=== PATIENT | female | born 1955 | race Caucasian/White ===

== ENCOUNTER 2016-11-15 18:29 | Emergency (ER) | payer OTHER ==
[2016-11-15 18:58] VITALS: BP 112/76; PULSE 82; RESP 18; TEMP 98.2; O2SAT 94
[2016-11-15] MEDS ORDERED: CEPHALEXIN 500MG PREPACK#4 BTL TAKEHOME ONE (20:06)
--- NOTE | 2016-11-15 20:07 | UCPHY ---
H & P Time Seen by Provider: 11/15/16 19:35 Patient Type: New Smoking Status: Never smoked Constitutional: Initial Vital Signs Temperature (C) 36.8 C 11/15/16 18:54 Heart Rate 82 11/15/16 18:54 Respiratory Rate 18 11/15/16 18:54 Blood Pressure 112/76 11/15/16 18:54 O2 Sat (%) 94 11/15/16 18:54 O2 Delivery Mode Room Air Allergies/Adverse Reactions: No Known Allergies Allergy (Unverified 11/15/16 18:54) Home Medications: Medication Instructions Recorded Cephalexin [Keflex (*)] 500 mg PO TID #21 cap 11/15/16 Departure - Departure Clinical Impression: Puncture wound Cellulitis Qualifiers: Site of cellulitis: extremity Site of cellulitis of extremity: upper extremity Laterality: left Qualified Code(s): L03.114 - Cellulitis of left upper limb Sting, bee Qualifiers: Encounter type: initial encounter Injury intent: undetermined intent Qualified Code(s): T63.444A - Toxic effect of venom of bees, undetermined, initial encounter Condition: Good Instructions: Cellulitis (ED), Insect Bite or Sting (ED), Puncture Wound (ED) Additional Instructions: When he can raise her hand Go ahead and take [id number] nonsedating antihistamines such as Zyrtec, twice dosing. At home take Benadryl 50 mg every 6 hours as needed for the itching. Warm compresses and elevate when he can. Follow-up with PCP in 3 days if not markedly better, 5 days if not completely resolved Referrals: NONE *PRIMARY CARE P,. [Primary Care Provider] - As per Instructions Prescriptions: Cephalexin [Keflex (*)] 500 mg PO TID #21 cap - PQRS PQRS Measurement: NA
== END 2016-11-15 20:33 | disposition home or self-care (01) ==
LOC: CED 18:29
DX: T63.444A Toxic effect of venom of bees, undetermined, initial encounter (principal); L03.114 Cellulitis of left upper limb
CPT/HCPCS: G0463-PO